=== PATIENT | female | born 1985 | race Caucasian/White ===

== ENCOUNTER 2016-11-24 05:56 | Inpatient (IN) | payer MEDICAID ==
[2016-11-25] MEDS ORDERED: OBEPIDURAL* 0 ML ONE (00:16)
[2016-11-25 00:31] LABS: Hematocrit 37 % (35-47); Hemoglobin 12.9 g/dl (12.0-16.0); Mean Corpuscular HGB Conc 35 g/dl (31-36); Mean Corpuscular Hemoglobin 31 pg (27-31); Mean Corpuscular Volume 88 fL (80-97); Mean Platelet Volume 9 um3 (7.4-10.4); Red Blood Count 4.21 10^6/ul (4.0-5.4); Red Cell Distribution Width 13 % (10.5-15); White Blood Count 19.9 10^3/ul (3.5-10.8)
[2016-11-25] MEDS ORDERED: Oxytocin in LR* 0 UNITS/0 ML BAG IVPB ONE (00:34)
[2016-11-25] MEDS ORDERED: Glycerin ADULT SUPP PR PRN (01:22)
[2016-11-25] MEDS ORDERED: Acetaminophen TAB* 325 MG PO PRN (01:22)
[2016-11-25] MEDS ORDERED: Witch Hazel PAD* JAR TOPICAL PRN (01:22)
[2016-11-25] MEDS ORDERED: Dibucaine 1% 28.35 GM TUBE PR PRN (01:22)
[2016-11-25] MEDS: Ibuprofen TAB* 600 MG PO PRN ×3 (03:49→22:56)
[2016-11-25] MEDS: Docusate CAP* 100 MG PO SCH ×4 (08:27→22:56)
[2016-11-25] MEDS ORDERED: Simethicone TAB* 80 MG TAB.CHEW PO SCH (08:30)
[2016-11-26 06:36] LABS: Hematocrit 32 % (35-47); Hemoglobin 11.4 g/dl (12.0-16.0); Mean Corpuscular HGB Conc 36 g/dl (31-36); Mean Corpuscular Hemoglobin 32 pg (27-31); Mean Corpuscular Volume 88 fL (80-97); Mean Platelet Volume 9 um3 (7.4-10.4); Red Blood Count 3.61 10^6/ul (4.0-5.4); Red Cell Distribution Width 13 % (10.5-15); White Blood Count 12.8 10^3/ul (3.5-10.8)
[2016-11-26 07:47] VITALS: BP 114/67
[2016-11-26] MEDS ORDERED: Ferrous Gluconate TAB* 324 MG TAB PO SCH (09:00)
[2016-11-26] MEDS: Docusate CAP* 100 MG PO SCH (09:47)
[2016-11-26] MEDS: Ibuprofen TAB* 600 MG PO PRN (11:14)
== END 2016-11-26 09:50 | disposition home or self-care (01) | DRG 560 ==
LOC: MCHOBOUT 05:56 → MCHOB 06:29
PROVIDERS: ADMIT Midwife; ATTEND Midwife
PROC: 10E0XZZ Delivery of Products of Conception, External Approach (ICD-10-PCS; principal; 2016-11-25)
PROC: 10907ZC Drainage of Amniotic Fluid, Therapeutic from Products of Conception, Via Natural or Artificial Opening (ICD-10-PCS; 2016-11-25)
PROC: 4A1HXCZ Monitoring of Products of Conception, Cardiac Rate, External Approach (ICD-10-PCS; 2016-11-25)
DX: O48.0 Post-term pregnancy (principal); O71.89 Other specified obstetric trauma; Z3A.40 40 weeks gestation of pregnancy; Z37.0 Single live birth; Z88.0 Allergy status to penicillin; Z88.1 Allergy status to other antibiotic agents; O75.81 Maternal exhaustion complicating labor and delivery
CPT/HCPCS: 36415; 85025; 85027; 86850; 86900; 86901; A9270-GY